=== PATIENT | male | born 1950 | race Caucasian/White ===

== ENCOUNTER 2017-03-29 08:31 | Day surgery (SDC) | payer MEDICARE, BC ==
[~2017-03-29] VITALS: Ht 190.5 cm; Wt 86.2 kg
[~2017-03-29 08:31] MED LIST: ASPIRIN LOW DOS81 MG PO; BILBERRY PO; CENTRUM PO; E400400 UNIT OR; FISH OIL1000 MG PO; FLUZONE SPLT1 M1 IM; GLUCOSAMINE CHO1 CAP PO; GLUCOSAMINE1 TA1 OR; IMODIUM2 MG PO; MULT VITAMIN OR; NIACIN250 M4 PO; PROAIR HFA IN; SM GAS RELIEF PO; TERBINAFINE250 M1 PO; VALTREX1 GM PO; VENTOLIN HFA IN; VIAGRA100 MG PO
[2017-03-29 10:20] VITALS: BP 108/53
== END 2017-03-29 10:18 | disposition home or self-care (01) ==
LOC: ENDO 08:31
PROVIDERS: ATTEND Surgery
PROC: 0DJD8ZZ Inspection of Lower Intestinal Tract, Via Natural or Artificial Opening Endoscopic (ICD-10-PCS; principal; 2017-03-29)
DX: Z12.11 Encounter for screening for malignant neoplasm of colon (principal); K64.4 Residual hemorrhoidal skin tags; J44.9 Chronic obstructive pulmonary disease, unspecified

== ENCOUNTER 2022-10-25 18:17 | Emergency (ER) | payer MEDICARE, BC ==
[~2022-10-25] VITALS: Ht 190.5 cm; Wt 86.0 kg
[2022-10-25] VITALS (9 sets, daily range): BP systolic 147–164; BP diastolic 75–92
[2022-10-25] MEDS ORDERED: PREDNISONE50 MG PO (20:51)
== END 2022-10-25 21:18 | disposition home or self-care (01) ==
LOC: ED 18:17
DX: T63.461A Toxic effect of venom of wasps, accidental (unintentional), initial encounter (principal)